=== PATIENT | female | born 1990 | race Caucasian/White ===

== ENCOUNTER 2017-10-06 19:58 | Emergency (ER) | payer OTHER ==
[~2017-10-06] VITALS: Ht 154.9 cm; Wt 92.5 kg
[2017-10-06 20:17] VITALS: Ht 154.9 cm; Wt 92.5 kg
[2017-10-06 21:32] LABS: BASOPHIL % 1.8 % (0-2); PLATELET COUNT 267 x10^3mcL (130-400); RED CELL DISTRIBUTION WIDTH 14.2 % (11.5-14.5)
[2017-10-06 21:49] LABS: CALCIUM 8.6 mg/dL (8.5-10.1); CARBON DIOXIDE 23.8 mmol/L (21-32); CHLORIDE SERUM 101 mmol/L (98-107); CREATININE SERUM 0.6 mg/dL (0.6-1.0); GFR1 > 60 mL/min; GLUCOSE SERUM 172 mg/dL (74-106); POTASSIUM SERUM 3.7 mmol/L (3.5-5.1); SODIUM SERUM 137 mmol/L (136-145)
[2017-10-06 21:53] LABS: ALBUMIN 3.6 g/dL (3.4-5.0); ALKALINE PHOSPHATASE 81 U/L (46-116); ALT/SGPT 35 U/L (14-59); AST/SGOT 17 U/L (15-37); BILIRUBIN TOTAL 0.2 mg/dL (0.20-1.00); LIPASE 113 IU/L (73-393); TOTAL PROTEIN, SERUM 7.3 g/dL (6.4-8.2)
[2017-10-06 23:30] LABS: FREE T4 0.91 ng/dL (0.76-1.46)
[2017-10-07 01:35] VITALS: BP 134/79
== END 2017-10-07 01:35 | disposition home or self-care (01) ==
LOC: ED 19:58
PROVIDERS: Emergency Medicine
DX: B34.9 Viral infection, unspecified (principal); E11.9 Type 2 diabetes mellitus without complications
CPT/HCPCS: 84439; 85378; 86308; J1885; J7030

== ENCOUNTER 2019-07-18 19:11 | Emergency (ER) | payer OTHER ==
[~2019-07-18] VITALS: Ht 157.5 cm; Wt 91.6 kg
[2019-07-18 20:18] VITALS: Ht 157.5 cm; Wt 91.6 kg
[2019-07-18 21:41] LABS: microscopic required? YES; urine erythrocyte 3+ (NEGATIVE)
[2019-07-18 21:52] LABS: BASOPHIL % 0.6 % (0-2); PLATELET COUNT 292 x10^3mcL (130-400); RED CELL DISTRIBUTION WIDTH 13.1 % (11.5-14.5)
[2019-07-18 22:05] LABS: CALCIUM 9.3 mg/dL (8.5-10.1); CARBON DIOXIDE 29.4 mmol/L (21-32); CHLORIDE SERUM 101 mmol/L (98-107); CREATININE SERUM 0.6 mg/dL (0.6-1.0); GFR1 > 60 mL/min; GLUCOSE SERUM 124 mg/dL (74-106); POTASSIUM SERUM 4.1 mmol/L (3.5-5.1); SODIUM SERUM 137 mmol/L (136-145)
[2019-07-18 22:10] LABS: ALBUMIN 3.5 g/dL (3.4-5.0); ALKALINE PHOSPHATASE 82 U/L (46-116); ALT/SGPT 21 U/L (14-59); AST/SGOT 7 U/L (15-37); BILIRUBIN TOTAL 0.21 mg/dL (0.20-1.00); LIPASE 81 IU/L (73-393); TOTAL PROTEIN, SERUM 7.7 g/dL (6.4-8.2)
[2019-07-19 00:55] VITALS: BP 139/80
== END 2019-07-19 00:55 | disposition home or self-care (01) ==
LOC: ED 19:11
PROVIDERS: Emergency Medicine
DX: R10.31 Right lower quadrant pain (principal); R11.0 Nausea; R19.7 Diarrhea, unspecified; I10 Essential (primary) hypertension; E11.9 Type 2 diabetes mellitus without complications; Z98.890 Other specified postprocedural states; Z90.49 Acquired absence of other specified parts of digestive tract
CPT/HCPCS: J1885; J2405

== ENCOUNTER 2019-09-28 22:54 | Emergency (ER) | payer OTHER ==
[~2019-09-28] VITALS: Ht 154.9 cm; Wt 95.7 kg
[2019-09-28 23:02] VITALS: Ht 154.9 cm; Wt 95.7 kg
[2019-09-29 00:56] LABS: BASOPHIL % 0.3 % (0-2); PLATELET COUNT 286 x10^3mcL (130-400); RED CELL DISTRIBUTION WIDTH 13.1 % (11.5-14.5)
[2019-09-29 01:27] LABS: CALCIUM 8.9 mg/dL (8.5-10.1); CARBON DIOXIDE 30.1 mmol/L (21-32); CHLORIDE SERUM 105 mmol/L (98-107); CREATININE SERUM 0.7 mg/dL (0.6-1.0); GFR1 > 60 mL/min; GLUCOSE SERUM 113 mg/dL (74-106); POTASSIUM SERUM 3.9 mmol/L (3.5-5.1); SODIUM SERUM 144 mmol/L (136-145)
[2019-09-29 01:54] LABS: ALBUMIN 3.6 g/dL (3.4-5.0); ALT/SGPT 31 U/L (14-59)
[2019-09-29 02:47] LABS: ALKALINE PHOSPHATASE 83 U/L (46-116); AST/SGOT 15 U/L (15-37); BILIRUBIN TOTAL 0.2 mg/dL (0.20-1.00); LIPASE 80 IU/L (73-393); TOTAL PROTEIN, SERUM 7.5 g/dL (6.4-8.2)
[2019-09-29 03:40] VITALS: BP 136/78
== END 2019-09-29 03:40 | disposition home or self-care (01) ==
LOC: ED 22:54
DX: K21.9 Gastro-esophageal reflux disease without esophagitis (principal); K58.0 Irritable bowel syndrome with diarrhea; I10 Essential (primary) hypertension; E11.9 Type 2 diabetes mellitus without complications; R42 Dizziness and giddiness; Z98.51 Tubal ligation status; Z90.49 Acquired absence of other specified parts of digestive tract
CPT/HCPCS: J2405; J2765; J3490; J7030

== ENCOUNTER 2019-11-23 22:06 | Emergency (ER) | payer OTHER ==
[~2019-11-23] VITALS: Ht 157.5 cm; Wt 96.6 kg
[2019-11-23 22:12] VITALS: Ht 157.5 cm; Wt 96.6 kg
[2019-11-24 00:21] LABS: CALCIUM 9.7 mg/dL (8.5-10.1); CARBON DIOXIDE 30.7 mmol/L (21-32); CHLORIDE SERUM 104 mmol/L (98-107); CREATININE SERUM 0.7 mg/dL (0.6-1.0); GFR1 > 60 mL/min; GLUCOSE SERUM 142 mg/dL (74-106); POTASSIUM SERUM 4.4 mmol/L (3.5-5.1); SODIUM SERUM 143 mmol/L (136-145)
[2019-11-24 00:25] LABS: ALBUMIN 3.6 g/dL (3.4-5.0); ALKALINE PHOSPHATASE 81 U/L (46-116); ALT/SGPT 24 U/L (14-59); AMYLASE 35 U/L (25-115); AST/SGOT 14 U/L (15-37); BILIRUBIN TOTAL 0.2 mg/dL (0.20-1.00); LIPASE 87 IU/L (73-393); TOTAL PROTEIN, SERUM 7.6 g/dL (6.4-8.2)
[2019-11-24 00:28] LABS: BASOPHIL % 0.4 % (0-2); PLATELET COUNT 327 x10^3mcL (130-400); RED CELL DISTRIBUTION WIDTH 13.5 % (11.5-14.5)
[2019-11-24 06:41] VITALS: BP 129/65
== END 2019-11-24 06:41 | disposition home or self-care (01) ==
LOC: ED 22:06
PROVIDERS: Emergency Medicine
DX: K21.9 Gastro-esophageal reflux disease without esophagitis (principal); R19.7 Diarrhea, unspecified; I10 Essential (primary) hypertension; E11.9 Type 2 diabetes mellitus without complications; Z90.49 Acquired absence of other specified parts of digestive tract
CPT/HCPCS: 82962; J2270; J3490; J7030

== ENCOUNTER 2020-07-11 18:03 | Emergency (ER) | payer OTHER ==
[~2020-07-11] VITALS: Ht 157.5 cm; Wt 97.1 kg
[2020-07-11 18:12] VITALS: Ht 157.5 cm; Wt 97.1 kg
[2020-07-11 19:25] LABS: BASOPHIL % 1.2 % (0-2); PLATELET COUNT 284 x10^3mcL (130-400); RED CELL DISTRIBUTION WIDTH 13.8 % (11.5-14.5)
[2020-07-11 19:41] LABS: microscopic required? NO
[2020-07-11 19:43] LABS: CALCIUM 8.9 mg/dL (8.5-10.1); CARBON DIOXIDE 29.3 mmol/L (21-32); CHLORIDE SERUM 103 mmol/L (98-107); CREATININE SERUM 0.7 mg/dL (0.6-1.0); GFR1 > 60 mL/min; GLUCOSE SERUM 202 mg/dL (74-106); POTASSIUM SERUM 4.7 mmol/L (3.5-5.1); SODIUM SERUM 137 mmol/L (136-145)
[2020-07-11 19:47] LABS: ALKALINE PHOSPHATASE 80 U/L (46-116); ALT/SGPT 22 U/L (14-59); AST/SGOT 10 U/L (15-37); BILIRUBIN TOTAL 0.13 mg/dL (0.20-1.00); TOTAL PROTEIN, SERUM 6.7 g/dL (6.4-8.2)
[2020-07-11 19:58] LABS: urine erythrocyte NEGATIVE (NEGATIVE)
[2020-07-11 20:28] LABS: AMPHETAMINE QUAL UR NONE DETECTED (See below)
[2020-07-11 20:44] VITALS: BP 132/84
== END 2020-07-11 21:05 | disposition home or self-care (01) ==
LOC: ED 18:03
PROVIDERS: Emergency Medicine
DX: G43.909 Migraine, unspecified, not intractable, without status migrainosus (principal); E11.9 Type 2 diabetes mellitus without complications; I10 Essential (primary) hypertension; K21.9 Gastro-esophageal reflux disease without esophagitis; K58.9 Irritable bowel syndrome, unspecified
CPT/HCPCS: J1885

== ENCOUNTER 2020-08-20 18:51 | Emergency (ER) | payer OTHER ==
[~2020-08-20] VITALS: Ht 167.6 cm; Wt 99.8 kg
[2020-08-20 19:10] VITALS: BP 139/59
[2020-08-20 20:27] LABS: microscopic required? NO
[2020-08-20 21:03] LABS: urine erythrocyte NEGATIVE (NEGATIVE)
[2020-08-20 21:21] LABS: BASOPHIL % 0.8 % (0.2-1.3); PLATELET COUNT 310 x10^3mcL (179-408); RED CELL DISTRIBUTION WIDTH 14.4 % (12.3-17.7)
[2020-08-20 21:44] LABS: CALCIUM 9.3 mg/dL (8.5-10.1); CARBON DIOXIDE 28.1 mmol/L (21-32); CHLORIDE SERUM 100 mmol/L (98-107); CREATININE SERUM 0.6 mg/dL (0.6-1.0); GFR1 > 60 mL/min; GLUCOSE SERUM 169 mg/dL (74-106); POTASSIUM SERUM 3.9 mmol/L (3.5-5.1); SODIUM SERUM 135 mmol/L (136-145)
[2020-08-20 21:47] LABS: ALBUMIN 3.5 g/dL (3.4-5.0); ALKALINE PHOSPHATASE 77 U/L (46-116); ALT/SGPT 24 U/L (14-59); AST/SGOT 11 U/L (15-37); BILIRUBIN TOTAL 0.3 mg/dL (0.20-1.00); LIPASE 109 IU/L (73-393); TOTAL PROTEIN, SERUM 7.5 g/dL (6.4-8.2)
== END 2020-08-20 23:48 | disposition home or self-care (01) ==
LOC: ED 18:51
PROVIDERS: Emergency Medicine
DX: R10.12 Left upper quadrant pain (principal); I10 Essential (primary) hypertension; E11.9 Type 2 diabetes mellitus without complications; K21.9 Gastro-esophageal reflux disease without esophagitis